=== PATIENT | male | born 2000 | race Caucasian/White ===

== ENCOUNTER 2023-10-05 10:46 | Emergency (ER) | payer OTHER ==
[~2023-10-05] VITALS: Ht 167.6 cm; Wt 72.6 kg
[2023-10-05 11:25] VITALS: BP 140/85; PULSE 62; RESP 18; TEMP 98; O2SAT 98
[2023-10-05] MEDS ORDERED: BACITRACIN OINT 500 UNITS/GM PKT TP ONE (13:25)
[2023-10-05] MEDS ORDERED: ACET-8905 PO (13:35)
[2023-10-05] MEDS ORDERED: CEPH-588 PO (13:35)
[2023-10-05] MEDS ORDERED: IBUP-2218 PO (13:35)
== END 2023-10-05 13:52 | disposition home or self-care (01) ==
LOC: MED 10:46
DX: S61.431A Puncture wound without foreign body of right hand, initial encounter (principal); Z79.899 Other long term (current) drug therapy; Z79.2 Long term (current) use of antibiotics; Z79.1 Long term (current) use of non-steroidal anti-inflammatories (NSAID); W29.4XXA Contact with nail gun, initial encounter; Y92.89 Other specified places as the place of occurrence of the external cause; Y93.89 Activity, other specified; Y99.0 Civilian activity done for income or pay
CPT/HCPCS: 73130; 99283